=== PATIENT | male | born 1950 | race Caucasian/White ===

== ENCOUNTER → 2024-05-30 | Outpatient (CLI) | payer BC ==
[~2024-05-30] VITALS: Ht 180.3 cm; Wt 77.1 kg
[~2024-05-30] MED LIST: ESCI5TAB; OMEPRAZOLE
[2024-05-30] MEDS: REGADENOSON 0.4 MG/5 ML SYRG IV ONE ×2 (10:31→10:41)
== END | disposition home or self-care (01) ==
LOC: XYW 08:24
PROVIDERS: ATTEND Specialist
DX: I25.9 Chronic ischemic heart disease, unspecified (principal); I11.0 Hypertensive heart disease with heart failure; I50.23 Acute on chronic systolic (congestive) heart failure; R06.02 Shortness of breath
CPT/HCPCS: 78452; 93017; A9500; J2785